=== PATIENT | male | born 1950 | race Caucasian/White ===

== ENCOUNTER 2017-02-11 16:47 | Emergency (ER) | payer BC ==
[~2017-02-11] VITALS: Ht 175.3 cm; Wt 86.0 kg
[2017-02-11 17:49] LABS: HEMATOCRIT 48.4 % (38.0-50.0); MCH 32.3 PG (29.0-34.0); MCHC 33.9 G/DL (30.0-36.0); MCV 95.5 FL (86-99); MEAN PLAT.VOLUME 9.3 uM^3 (9.0-12.4); PLATELET COUNT 325 K/uL (156-360); RBC DIS.WIDTH-CV 14.7 % (11.8-14.6); RBC DIS.WIDTH-SD 51.8 % (39-53); RED BLOOD COUNT 5.07 M/uL (4.00-5.50); WHITE BLOOD COUNT 17.2 K/uL (4.1-10.2)
[2017-02-11 18:06] LABS: PROTHROMBIN TIME 10.3 (9.2-11.2); PTT 27.2 (25-32)
[2017-02-11 18:07] LABS: CHLORIDE 107 mEq/L (99-109); POTASSIUM 3.9 mEq/L (3.7-5.4); SODIUM 145 mEq/L (136-147)
[2017-02-11 18:10] LABS: GLUCOSE 68 mg/dL (70-99)
[2017-02-11 18:11] LABS: ANION GAP 16 MEQ/L (2-14)
[2017-02-11 18:12] LABS: TOTAL BILIRUBIN 0.3 mg/dL (0.0-1.0)
[2017-02-11 18:13] LABS: ALKALINE PHOSPHATASE 72 IU/L (3-129); SERUM ETHYL ALCOHOL 344 mg/dL
[2017-02-11 18:15] LABS: UREA NITROGEN (BUN) 16 mg/dL (9-23)
[2017-02-11 18:20] LABS: GFR ESTIMATE (CALCULATED) > 59 mL/min/
[2017-02-11 18:32] VITALS: BP 158/96
== END 2017-02-11 18:35 | disposition left against medical advice (07) ==
LOC: EME 16:47
PROVIDERS: Emergency Medicine
DX: F10.129 Alcohol abuse with intoxication, unspecified (principal); Y90.8 Blood alcohol level of 240 mg/100 ml or more; S09.90XA Unspecified injury of head, initial encounter; S50.811A Abrasion of right forearm, initial encounter; M54.2 Cervicalgia; W18.30XA Fall on same level, unspecified, initial encounter; Z72.0 Tobacco use
CPT/HCPCS: 80053; 85027; 85610; 85730; 99281; 99283; G0480